=== PATIENT | female | born 1995 | race Caucasian/White ===

== ENCOUNTER 2016-11-27 12:43 | Emergency (ER) | payer SELFPAY ==
--- NOTE | 2016-11-27 14:56 | ED ORDER SUMMARY ---
..... Patient: MARIA T LARSON OrderSheet [facility] VisitID: [id number] [place] [address] 21y, F Registration Date/Time: 11/27/2016 ORDER SHEET Weight: 90.7 kg (stated) Allergies: No Known Drug Allergy GENERAL ORDERS: CBC w Diff Urgent (13:11 11/27/2016 EKoroleva P.A.-C) (Ack 13:14 Josef) (14:02 DDean R.N.) CMP Urgent (13:11 11/27/2016 EKoroleva P.A.-C) (Ack 13:14 Josef) (14:02 DDean R.N.) Serum Quantitative Urgent (13:11 11/27/2016 EKoroleva P.A.-C) (13:11 EKoroleva P.A.-C) (Cancelled: Other13:11 EKoroleva P.A.-C) Serum Quantitative Urgent (13:11 11/27/2016 EKoroleva P.A.-C) (Ack 13:14 Josef) (13:21 DDean R.N.) (Cancelled: Other13:21 DDean R.N.) Wet Prep (Cervix) (c) Urgent (13:11 11/27/2016 EKoroleva P.A.-C) (Ack 13:14 Josef) (14:02 DDean R.N.) GC/Chlamydia (Cervix) (c) Urgent (13:11/27/2016 EKoroleva P.A.-C) (Ack 13:14 Josef) (14:02 DDean R.N.) Pelvic Exam Setup (13:11/27/2016 EKoroleva P.A.-C) (14:02 DDean R.N.) POC - Urine hCG (13:11/27/2016 DDean R.N. per protocol) (14:02 DDean R.N.) UA-Culture if indicated Urgent (13:11/27/2016 EKoroleva P.A.-C) (Ack 13:25 Josef) (14:02 DDean R.N.) US Pelvic Complete w Transvag Urgent (13:27 11/27/2016 EKoroleva P.A.-C) (Ack 13:31 Josef) (14:02 DDean R.N.) MEDICATION ORDERS: Tylenol PO 1,000 mg (NOW) (13:12 11/27/2016 EKoroleva P.A.-C) (Ack 14:01 DDean R.N.) (14:27 DDean R.N.) Vistaril PO 100 mg (NOW) (14:06 11/27/2016 EKoroleva P.A.-C) (14:27 DDean R.N.) Ciprofloxacin PO 500 mg (NOW) (14:06 11/27/2016 EKoroleva P.A.-C) (Cancelled: Other14:08 EKoroleva P.A.-C) Levofloxacin PO 500 mg (NOW) (14:08 11/27/2016 EKoroleva P.A.-C) (14:26 DDean R.N.) IV FLUIDS: IV Saline Lock (13:12 11/27/2016 EKoroleva P.A.-C) (Ack 14:01 DDean R.N.) (14:28 DDean R.N.) IV NS : initial bolus 1000 mL (1000 mL/hr), then 1000 mL/hr for X1 (NOW); Dedrick (13:21 11/27/2016 EKoroleva P.A.-C) (Ack 14:01 DDean R.N.) (Cancelled: pt pulled out iv 14:29 DDean R.N.) Ceftriaxone IV 2 gm/50mL (NOW) (13:55 11/27/2016 EKoroleva P.A.-C) (Ack 14:01 DDean R.N.) (Cancelled: Other14:06 EKoroleva P.A.-C) ORDER SHEET NOTES: [Electronically signed by Feli SharmaA.-C (15:07 11/27/2016)] [Electronically signed by Darlyn Vicente R.N. (15:07 11/27/2016)] [Electronically locked/signed by Darlyn Vicente R.N. (15:07 11/27/2016)]
--- NOTE | 2016-11-27 14:56 | ED CLINICAL REPORT ---
Clinical Report - Physicians/Mid Levels [facility] [address] [place] [address] 11/27/2016 12:44 Patient: MARIA T LARSON Time Seen: 13:13 Nov 27 2016. Arrived- By private vehicle. Historian- patient. HISTORY OF PRESENT ILLNESS Chief Complaint: PELVIC PAIN. This started yesterday and still present. The symptoms are described as moderate. The patient has had pelvic pain. No abnormal bleeding or vaginal itching. She has had pain with urination. The patient has had urinary frequency. Last normal menstrual period- 7 days prior, has been spotting last 5 days. Sexually active. (patient presents to the emergency room department with right pelvic pain and burning pain radiating from the right flank into her groin over the last 24 hours. Patient with no history of similar pain. Reports nausea, no vomiting. Last regular menstrual period was about 7 days previously, which was normal in time from a duration of her, however since she has been spotting.). REVIEW OF SYSTEMS The patient has had nausea. No vomiting, diarrhea, chest pain or skin rash. All systems otherwise negative, except as recorded above. PAST HISTORY Problems: URI. LNMP - Last Normal Menstrual Period. Additional Surgeries: no known surgeries. Medications: Midol last night . Pt was on amoxicillin 2 weeks ago, for lung infection . Allergies: No Known Drug Allergy. SOCIAL HISTORY Never smoker. Alcohol use; consumes beer occasionally. History of drug use last use 3 weeks prior: marijuana. Is not under influence in ED. PHYSICAL EXAM Appearance: Anxious. Appears to be in pain. Patient in mild distress. HEENT: Normal external inspection. ENT: Pharynx normal. Neck: Neck supple. CVS: Heart sounds normal. Respiratory: No respiratory distress. Breath sounds normal. Abdomen: Soft. Tenderness in the right lower quadrant, suprapubic area and lower abdomen. No organomegaly. No mass. Back: Normal external inspection. No CVA tenderness. : Speculum exam normal. Vaginal bleeding, (slight). Bimanual exam normal. Tenderness present on bimanual exam (R). (with supervising producer Darlyn KIRKLAND). Skin: Skin warm. Normal skin color. Neuro: Oriented X 3. LABS, X-RAYS, AND EKG Laboratory Tests: UA-Culture if indicated: (NII: 11/27/2016 13:10) ( [facility] 11/27/2016 13:48) Final results Test Result Flag Units (Reference) URINE COLOR YELLOW URINE APPEARANCE CLOUDY URINE GLUCOSE NEGATIVE (NEGATIVE) URINE BILIRUBIN NEGATIVE (NEGATIVE) URINE KETONE NEGATIVE (NEGATIVE) URINE SPECIFIC GRAVITY 1.020 (1.010-1.030) URINE PH 6.0 (5.0-8.0) URINE PROTEIN 1+ (NEGATIVE) URINE UROBILINOGEN 0.2 EU/dL (0.2-1.0) URINE NITRITE NEGATIVE (NEGATIVE) URINE BLOOD 3+ (NEGATIVE) URINE LEUK ESTERASE POSITIVE (NEGATIVE) URINE RBC 75-100 rbc/hpf (0-1) URINE WBC >100 wbc/hpf (0-1) URINE EPITHELIAL CELLS 0-1 EPI/hpf (0-5) URINE BACTERIA MODERATE (2+ TO 3+) (NONE SEEN) URINE COMMENT CULTURE INDICATED RARE TRANSITIONAL EPITHELIAL CELLSURINE CULTURES ARE SET-UP BASED ON THE FOLLOWING CRITERIA:POSITIVE NITRITEPOSITIVE LEUKOCYTE ESTERASEGREATER THAN 10 WHITE BLOOD CELLSMODERATE (2+) OR GREATER BACTERIA CBC w Diff: (NII: 11/27/2016 13:10) ( [facility] 11/27/2016 13:18) Final results Test Result Flag Units (Reference) WHITE BLOOD COUNT 16.9 H K/uL (4.5-11.5) RED BLOOD COUNT 5.06 M/uL (4.00-5.20) HEMOGLOBIN 14.0 gm/dL (12.0-16.0) HEMATOCRIT 41.4 % (36.0-46.0) MEAN CELL VOLUME 82 fL (80-100) MEAN CORPUSCULAR HGB 28 pg (26-34) MEAN CORPUSCULAR HGB CONC 34 g/dL (31-37) RED CELL DISTRIBUTION WIDTH 14.2 % (11.6-14.8) PLATELET COUNT 454 H K/uL (150-400) NEUTROPHIL % 78.0 H % (50-75) LYMPH % 17.0 L % (25-40) MONO % 3.2 % (3-14) EOSINOPHIL % 1.0 % (0-4) BASOPHIL % 0.8 % (0-2) CMP: (NII: 11/27/2016 13:10) ( MsgRcvd 11/27/2016 13:44) Final results Test Result Flag Units (Reference) GLUCOSE 101 mg/dL (70-110) BUN 10 mg/dL (7-18) CREATININE 0.8 mg/dL (0.6-1.3) Estimated GFR >60 mL/min Estimated GFR- >60 mL/min Note: Persistent reduction over 3 months in eGFR<60 mL/min/1.73 m2 defines CKD. Patients with eGFR values>=60 mL/min/1.73 m2 may also have CKD if evidence ofpersistent proteinuria. Additional information may be foundat www.kidney.org. SODIUM 138 mmol/L (136-145) POTASSIUM 3.9 mmol/L (3.5-5.1) CHLORIDE 102 mmol/L (98-107) CARBON DIOXIDE 27 mmol/L (21-32) CALCIUM 9.2 mg/dL (8.5-10.1) TOTAL PROTEIN 8.0 g/dL (6.4-8.2) ALBUMIN 3.7 g/dL (3.3-5.0) BILIRUBIN, TOTAL 0.5 mg/dL (0.0-1.0) ALKALINE PHOSPHATASE 108 U/L (46-116) AST (SGOT) 20 U/L (15-37) ALT (SGPT) 52 U/L (12-78) Wet Prep: (NII: 11/27/2016 13:20) ( MsgRcvd 11/27/2016 13:42) Final results SPECIMEN DESCRIPTION: C Test Result Flag Units (Reference) WET MOUNT CLUE CELLS:: RARE * EPITHELIAL CELLS: MODERATE -- SOURCE?: CERVIX WHITE BLOOD CELLS: MODERATE TRICHOMONAS:: NONE -- YEAST:: NONE . Note - Tests: (US pelvic neg: no torsion). PROGRESS AND PROCEDURES Course of Care: patient with unremarkable pelvic exam size right-sided tenderness, with no cervical motion tenderness. US unremarkable AT 14:10 patient had a panic attack, pulled her IV changed clothing and was standing at edge of her room desiring to leave. We were able to calm her down vistaril 100 mg, and convince her to stay for US, which is negative. Pt was given oral FQ and will continue with CIPRO outpatient. Leukocytosis, afebrile, normacardic, non septic, euovolimic, otherwise healthy female who is stable for outpatient management at this time. No rebound, guarding, no signs concerning for appendicitis. 11/27/2016 14:50 BP: 116/78. HR: 82. RR: 18. O2 saturation: 99%. Pain level now: 10. Patient is stable. Symptoms better. Patient/family counseled. Disposition: Discharged. Condition: good. CLINICAL IMPRESSION Acute pyelonephritis Dysfunctional uterine bleeding. INSTRUCTIONS Do not work today (on 11/27/16 due to MEDICAL REASONS). Drink plenty of fluids. (Address: [address] [place] [address] [facility]). Prescription Medications: Hydrocodone/APAP 5mg / 325mg: take 1 orally every 6 hours as needed for pain. Dispense twelve (12). No refill. Zofran (orally disintegrating tablets) 4 mg: take 1 orally every 6 hours for 3 days as needed for nausea and vomiting. Dispense ten (10). No refill. Substitution is permissible. Cipro 500 mg: take 1 tab orally every 12 hours for 10 days. No refills. Substitution is permissible. Follow-up: Follow up with your doctor in three days as needed. Understanding of the discharge instructions verbalized by patient. (Electronically signed by Feli Sharma P.A.-C 11/27/2016 15:07)
--- NOTE | 2016-11-27 14:56 | ED NURSING NOTES ---
Clinical Report - Nurses [facility] [address] [place] [address] 11/27/2016 12:44 Patient: MARIA T LARSON TRIAGE Triage time 1300. Acuity: LEVEL 3. Chief Complaint: URGENCY and FREQUENCY and (right sided groin pain going thru to back. pt states she didn't sleep well last night due to pain). --13:08 Darlyn Vicente R.N. 13:00 11/27/16. BP: 129/90. HR: 97. RR: 20. O2 saturation: 98%. Temp: 97.8 F. Pain level now: 12/28. --13:08 Darlyn Vicente R.N. Weight: 90.7 kg stated. Height/Length: 59 inches Per Patient. BMI: 40.4. --13:02 Darlyn Vicente R.N. Medications Pt was on amoxicillin 2 weeks ago, for lung infection . --13:07 Darlyn Vicente R.N. Midol last night . --13:08 Darlyn Vicente R.N. Allergies No Known Drug Allergy. --13:07 Darlyn Vicente R.N. History Arrived by private vehicle. Historian: patient. Unaccompanied. No primary care physician. This started last night. She has had spotting and flank pain. ( also c/o nose bleeds). PAST MEDICAL HX: Last normal menstrual period- 1 week. SURGERY HX: No history of previous surgery. SOCIAL HX: Never smoker. Occasional alcohol use. History of drug use: marijuana. (last used 3 weeks). --13:08 Darlyn Vicente R.N. PROBLEMS: URI. --13:03 Darlyn Vicente R.N. ADDITIONAL SURGERIES: no known surgeries. Interventions ID band on patient. To treatment room. --13:08 Darlyn Vicente R.N. PHYSICAL ASSESSMENT 13:00. Ambulatory to room. Patient gowned. GENERAL / NEURO / PSYCH: Alert. Oriented X 4. Appears in pain. RESPIRATORY: Respirations not labored. CVS: Capillary refill less than 2 seconds. GI / : Pain with urination. She has had frequency of urination. Urgency of urination. SKIN: Skin is warm and dry. --13:09 Darlyn Vicente R.N. NURSING PROGRESS NOTES 13:00. Patient gowned. Head of bed elevated. Reassurance given. Patient identifiers checked. Call light placed in reach. Side rails up. Bed placed in lowest position. Patient ready for evaluation- chart flagged. --13:08 Darlyn Vicente R.N. 13:04 11/27/2016 Site #1 started via IV in the left wrist with an 20g angiocath, with aseptic technique and good blood return; one attempt. Blood drawn: rainbow set. Labeled in the presence of the patient and sent to the lab. Saline lock flushed with 10 mL saline. --13:09 Darlyn Vicente R.N. 13:20 11/27/16. Patient ID band checked for patient name and birthdate: patient confirmed. Clean catch urine collected with return of yellow-colored cloudy urine; sample sent to lab for urinalysis and culture. Specimen labeled in the presence of the patient (UA preg= Neg, ERPA notified). --13:20 Darlyn Vicente R.N. 13:50 11/27/2016 Site #1 removed (pt pulled out own saline lock). --15:02 Darlyn Vicente R.N. 13:50 11/27/2016 IV Saline Lock Drip IV Discontinued: (Pt pulled out saline lock due to anxiety, and told staff after event.). --14:29 Darlyn Vicente R.N. 14:10 11/27/2016 Levofloxacin PO Tablets 500 mg given. --14:26 Darlyn Vicente R.N. 14:11/27/2016 Vistaril (HydrOXYzine Pamoate) PO Capsules 100 mg given. Allergies verified, confirmed 5 rights and sedative warning given to the patient. --14:27 Darlyn Vicente R.N. 14:11/27/2016 Tylenol (Acetaminophen) PO Tablets 1000 mg given. Allergies verified and confirmed 5 rights. --14:27 Darlyn Vicente R.N. 13:30. PELVIC EXAM: Pelvic exam performed by PA. Assisted by one nurse. Preparation: pelvic tray; patient placed in lithotomy position. Procedure: speculum and bimanual exam. Specimens collected and sent to lab: GC, chlamydia, wet prep and DNA probe. --15:03 Darlyn Vicente R.N. 13:50 Pt pulled out IV due to "anxiety reaction" pt notified staff of event. --15:04 Darlyn Vicente R.N. 14:05 Pt tearful, fully dressed talking with ERPA. not sure if she wants to stay and wait for US. Pt given meds and po food fluid. talking with staff to calm her down. --15:06 Darlyn Vicente R.N. 14:25 US at bedside to do exam, female escort at bedside. --15:06 Darlyn Vicente R.N. DISPOSITION / DISCHARGE 14:50. Condition at departure: improved and stable. No learning barriers present. Discharge instructions provided and reviewed with the patient. Reviewed medication(s) (cipro, zofran, vicodin). Patient verbalized understanding. Written instructions provided in Swedish. The patient was discharged home and unaccompanied at time of discharge. She left the Emergency Department ambulatory and via private vehicle. Patient driving. --15:02 Darlyn Vicetne R.N. 14:50 11/27/16. BP: 116/78. HR: 82. RR: 18. O2 saturation: 99%. Pain level now: 09/28. --15:02 Darlyn Vicente R.N. Locked/Released at 11/27/2016 15:07 by Darlyn Vicente R.N.
--- NOTE | 2016-11-27 14:56 | ED ORDER SUMMARY ---
..... Patient: MARIA T LARSON OrderSheet [facility] VisitID: [id number] [place] [address] 21y, F Registration Date/Time: 11/27/2016 ORDER SHEET Weight: 90.7 kg (stated) Allergies: No Known Drug Allergy GENERAL ORDERS: CBC w Diff Urgent (13:11 11/27/2016 EKoroleva P.A.-C) (Ack 13:14 Josef) (14:02 DDean R.N.) CMP Urgent (13:11 11/27/2016 EKoroleva P.A.-C) (Ack 13:14 Josef) (14:02 DDean R.N.) Serum Quantitative Urgent (13:11 11/27/2016 EKoroleva P.A.-C) (13:11 EKoroleva P.A.-C) (Cancelled: Other13:11 EKoroleva P.A.-C) Serum Quantitative Urgent (13:11 11/27/2016 EKoroleva P.A.-C) (Ack 13:14 Josef) (13:21 DDean R.N.) (Cancelled: Other13:21 DDean R.N.) Wet Prep (Cervix) (c) Urgent (13:11 11/27/2016 EKoroleva P.A.-C) (Ack 13:14 Josef) (14:02 DDean R.N.) GC/Chlamydia (Cervix) (c) Urgent (13:11/27/2016 EKoroleva P.A.-C) (Ack 13:14 Josef) (14:02 DDean R.N.) Pelvic Exam Setup (13:11/27/2016 EKoroleva P.A.-C) (14:02 DDean R.N.) POC - Urine hCG (13:11/27/2016 DDean R.N. per protocol) (14:02 DDean R.N.) UA-Culture if indicated Urgent (13:11/27/2016 EKoroleva P.A.-C) (Ack 13:25 Josef) (14:02 DDean R.N.) US Pelvic Complete w Transvag Urgent (13:27 11/27/2016 EKoroleva P.A.-C) (Ack 13:31 Josef) (14:02 DDean R.N.) MEDICATION ORDERS: Tylenol PO 1,000 mg (NOW) (13:12 11/27/2016 EKoroleva P.A.-C) (Ack 14:01 DDean R.N.) (14:27 DDean R.N.) Vistaril PO 100 mg (NOW) (14:06 11/27/2016 EKoroleva P.A.-C) (14:27 DDean R.N.) Ciprofloxacin PO 500 mg (NOW) (14:06 11/27/2016 EKoroleva P.A.-C) (Cancelled: Other14:08 EKoroleva P.A.-C) Levofloxacin PO 500 mg (NOW) (14:08 11/27/2016 EKoroleva P.A.-C) (14:26 DDean R.N.) IV FLUIDS: IV Saline Lock (13:12 11/27/2016 EKoroleva P.A.-C) (Ack 14:01 DDean R.N.) (14:28 DDean R.N.) IV NS : initial bolus 1000 mL (1000 mL/hr), then 1000 mL/hr for X1 (NOW); Dedrick (13:21 11/27/2016 EKoroleva P.A.-C) (Ack 14:01 DDean R.N.) (Cancelled: pt pulled out iv 14:29 DDean R.N.) Ceftriaxone IV 2 gm/50mL (NOW) (13:55 11/27/2016 EKoroleva P.A.-C) (Ack 14:01 DDean R.N.) (Cancelled: Other14:06 EKoroleva P.A.-C) ORDER SHEET NOTES: [Electronically signed by Feli SharmaA.-C (15:07 11/27/2016)] [Electronically signed by Darlyn Vicente R.N. (15:07 11/27/2016)] [Electronically locked/signed by Darlyn Vicente R.N. (15:07 11/27/2016)]
--- NOTE | 2016-11-27 14:56 | ED CLINICAL REPORT ---
Clinical Report - Physicians/Mid Levels [facility] [address] [place] [address] 11/27/2016 12:44 Patient: MARIA T LARSON Time Seen: 13:13 Nov 27 2016. Arrived- By private vehicle. Historian- patient. HISTORY OF PRESENT ILLNESS Chief Complaint: PELVIC PAIN. This started yesterday and still present. The symptoms are described as moderate. The patient has had pelvic pain. No abnormal bleeding or vaginal itching. She has had pain with urination. The patient has had urinary frequency. Last normal menstrual period- 7 days prior, has been spotting last 5 days. Sexually active. (patient presents to the emergency room department with right pelvic pain and burning pain radiating from the right flank into her groin over the last 24 hours. Patient with no history of similar pain. Reports nausea, no vomiting. Last regular menstrual period was about 7 days previously, which was normal in time from a duration of her, however since she has been spotting.). REVIEW OF SYSTEMS The patient has had nausea. No vomiting, diarrhea, chest pain or skin rash. All systems otherwise negative, except as recorded above. PAST HISTORY Problems: URI. LNMP - Last Normal Menstrual Period. Additional Surgeries: no known surgeries. Medications: Midol last night . Pt was on amoxicillin 2 weeks ago, for lung infection . Allergies: No Known Drug Allergy. SOCIAL HISTORY Never smoker. Alcohol use; consumes beer occasionally. History of drug use last use 3 weeks prior: marijuana. Is not under influence in ED. PHYSICAL EXAM Appearance: Anxious. Appears to be in pain. Patient in mild distress. HEENT: Normal external inspection. ENT: Pharynx normal. Neck: Neck supple. CVS: Heart sounds normal. Respiratory: No respiratory distress. Breath sounds normal. Abdomen: Soft. Tenderness in the right lower quadrant, suprapubic area and lower abdomen. No organomegaly. No mass. Back: Normal external inspection. No CVA tenderness. : Speculum exam normal. Vaginal bleeding, (slight). Bimanual exam normal. Tenderness present on bimanual exam (R). (with machine staker Darlyn KIRKLAND). Skin: Skin warm. Normal skin color. Neuro: Oriented X 3. LABS, X-RAYS, AND EKG Laboratory Tests: UA-Culture if indicated: (NII: 11/27/2016 13:10) ( [facility] 11/27/2016 13:48) Final results Test Result Flag Units (Reference) URINE COLOR YELLOW URINE APPEARANCE CLOUDY URINE GLUCOSE NEGATIVE (NEGATIVE) URINE BILIRUBIN NEGATIVE (NEGATIVE) URINE KETONE NEGATIVE (NEGATIVE) URINE SPECIFIC GRAVITY 1.020 (1.010-1.030) URINE PH 6.0 (5.0-8.0) URINE PROTEIN 1+ (NEGATIVE) URINE UROBILINOGEN 0.2 EU/dL (0.2-1.0) URINE NITRITE NEGATIVE (NEGATIVE) URINE BLOOD 3+ (NEGATIVE) URINE LEUK ESTERASE POSITIVE (NEGATIVE) URINE RBC 75-100 rbc/hpf (0-1) URINE WBC >100 wbc/hpf (0-1) URINE EPITHELIAL CELLS 0-1 EPI/hpf (0-5) URINE BACTERIA MODERATE (2+ TO 3+) (NONE SEEN) URINE COMMENT CULTURE INDICATED RARE TRANSITIONAL EPITHELIAL CELLSURINE CULTURES ARE SET-UP BASED ON THE FOLLOWING CRITERIA:POSITIVE NITRITEPOSITIVE LEUKOCYTE ESTERASEGREATER THAN 10 WHITE BLOOD CELLSMODERATE (2+) OR GREATER BACTERIA CBC w Diff: (NII: 11/27/2016 13:10) ( [facility] 11/27/2016 13:18) Final results Test Result Flag Units (Reference) WHITE BLOOD COUNT 16.9 H K/uL (4.5-11.5) RED BLOOD COUNT 5.06 M/uL (4.00-5.20) HEMOGLOBIN 14.0 gm/dL (12.0-16.0) HEMATOCRIT 41.4 % (36.0-46.0) MEAN CELL VOLUME 82 fL (80-100) MEAN CORPUSCULAR HGB 28 pg (26-34) MEAN CORPUSCULAR HGB CONC 34 g/dL (31-37) RED CELL DISTRIBUTION WIDTH 14.2 % (11.6-14.8) PLATELET COUNT 454 H K/uL (150-400) NEUTROPHIL % 78.0 H % (50-75) LYMPH % 17.0 L % (25-40) MONO % 3.2 % (3-14) EOSINOPHIL % 1.0 % (0-4) BASOPHIL % 0.8 % (0-2) CMP: (NII: 11/27/2016 13:10) ( MsgRcvd 11/27/2016 13:44) Final results Test Result Flag Units (Reference) GLUCOSE 101 mg/dL (70-110) BUN 10 mg/dL (7-18) CREATININE 0.8 mg/dL (0.6-1.3) Estimated GFR >60 mL/min Estimated GFR- >60 mL/min Note: Persistent reduction over 3 months in eGFR<60 mL/min/1.73 m2 defines CKD. Patients with eGFR values>=60 mL/min/1.73 m2 may also have CKD if evidence ofpersistent proteinuria. Additional information may be foundat www.kidney.org. SODIUM 138 mmol/L (136-145) POTASSIUM 3.9 mmol/L (3.5-5.1) CHLORIDE 102 mmol/L (98-107) CARBON DIOXIDE 27 mmol/L (21-32) CALCIUM 9.2 mg/dL (8.5-10.1) TOTAL PROTEIN 8.0 g/dL (6.4-8.2) ALBUMIN 3.7 g/dL (3.3-5.0) BILIRUBIN, TOTAL 0.5 mg/dL (0.0-1.0) ALKALINE PHOSPHATASE 108 U/L (46-116) AST (SGOT) 20 U/L (15-37) ALT (SGPT) 52 U/L (12-78) Wet Prep: (NII: 11/27/2016 13:20) ( MsgRcvd 11/27/2016 13:42) Final results SPECIMEN DESCRIPTION: C Test Result Flag Units (Reference) WET MOUNT CLUE CELLS:: RARE * EPITHELIAL CELLS: MODERATE -- SOURCE?: CERVIX WHITE BLOOD CELLS: MODERATE TRICHOMONAS:: NONE -- YEAST:: NONE . Note - Tests: (US pelvic neg: no torsion). PROGRESS AND PROCEDURES Course of Care: patient with unremarkable pelvic exam size right-sided tenderness, with no cervical motion tenderness. US unremarkable AT 14:10 patient had a panic attack, pulled her IV changed clothing and was standing at edge of her room desiring to leave. We were able to calm her down vistaril 100 mg, and convince her to stay for US, which is negative. Pt was given oral FQ and will continue with CIPRO outpatient. Leukocytosis, afebrile, normacardic, non septic, euovolimic, otherwise healthy female who is stable for outpatient management at this time. No rebound, guarding, no signs concerning for appendicitis. 11/27/2016 14:50 BP: 116/78. HR: 82. RR: 18. O2 saturation: 99%. Pain level now: 10. Patient is stable. Symptoms better. Patient/family counseled. Disposition: Discharged. Condition: good. CLINICAL IMPRESSION Acute pyelonephritis Dysfunctional uterine bleeding. INSTRUCTIONS Do not work today (on 11/27/16 due to MEDICAL REASONS). Drink plenty of fluids. (Address: [address] [place] [address] [facility]). Prescription Medications: Hydrocodone/APAP 5mg / 325mg: take 1 orally every 6 hours as needed for pain. Dispense twelve (12). No refill. Zofran (orally disintegrating tablets) 4 mg: take 1 orally every 6 hours for 3 days as needed for nausea and vomiting. Dispense ten (10). No refill. Substitution is permissible. Cipro 500 mg: take 1 tab orally every 12 hours for 10 days. No refills. Substitution is permissible. Follow-up: Follow up with your doctor in three days as needed. Understanding of the discharge instructions verbalized by patient. (Electronically signed by Feli Sharma P.A.-C 11/27/2016 15:07)
--- NOTE | 2016-11-27 15:08 | ED DISCHARGE INSTRUCTIONS ---
Patient: MARIA T LARSON General Instructions [facility] VisitID: [id number] [place] [address] 21y, F Registration Date/Time: 11/27/2016 Acute pyelonephritis Dysfunctional uterine bleeding. INSTRUCTIONS Do not work today (on 11/27/16 due to MEDICAL REASONS). Drink plenty of fluids. (Address: [place] [address] [facility]). Prescription Medications: Hydrocodone/APAP 5mg / 325mg: take 1 orally every 6 hours as needed for pain. Dispense twelve (12). No refill. Zofran (orally disintegrating tablets) 4 mg: take 1 orally every 6 hours for 3 days as needed for nausea and vomiting. Dispense ten (10). No refill. Substitution is permissible. Cipro 500 mg: take 1 tab orally every 12 hours for 10 days. No refills. Substitution is permissible. Follow-up: Follow up with your doctor in three days as needed. Understanding of the discharge instructions verbalized by patient. ADDITIONAL INFORMATION Kidney Infection [Adult, Female] An infection of the kidney is also called "pyelonephritis". It usually starts as a bladder infection ("cystitis") which spreads to the kidneys. Pyelonephritis is more serious than a bladder infection. It can cause severe illness if not treated properly. The usual symptoms include an aching pain in the back, side or lower abdomen. Other symptoms may include fever, chills, nausea, vomiting, an urge to urinate and a burning sensation when passing urine. Home Care: Stay home from work or school. Rest in bed until your fever breaks and you are feeling better. Drink lots of fluid (at least 6-8 glasses a day, unless you must restrict fluids for other medical reasons). This will force the medicine into your urinary system and flush the bacteria out of your body. Avoid sexual intercourse until you have finished all of your medicine and your symptoms have gone away. Avoid caffeine, alcohol and spicy foods which may irritate the kidney and bladder. You may use acetaminophen (Tylenol) or ibuprofen (Motrin, Advil) to control pain, unless another pain medicine was prescribed. [NOTE: If you have chronic liver or kidney disease or ever had a stomach ulcer or GI bleeding, talk with your doctor before using these medicines.] Follow Up with your doctor or as advised by our staff for a repeat urine test in 10 days. This will ensure that your infection is fully cleared. [NOTE: If you had an X-ray or CT scan, it will be reviewed by a specialist. You will be notified of any new findings that may affect your care.] Get Prompt Medical Attention if any of the following occur: Fever over 100.4F (38.0C) after 48 hours of treatment No improvement by the third day of treatment Increasing back or abdominal pain Repeated vomiting or inability to take oral medicine Weakness, dizziness or fainting Hydrocodone Bitartrate, Acetaminophen Oral tablet What is this medicine? ACETAMINOPHEN; HYDROCODONE (a set a GEO homero fen; keith droe KOE done) is a pain reliever. It is used to treat mild to moderate pain. How should I use this medicine? Take this medicine by mouth. Swallow it with a full glass of water. Follow the directions on the prescription label. If the medicine upsets your stomach, take the medicine with food or milk. Do not take more than you are told to take. Talk to your land commissioner regarding the use of this medicine in children. This medicine is not approved for use in children. What side effects may I notice from receiving this medicine? Side effects that you should report to your doctor or health care management assistant as soon as possible: allergic reactions like skin rash, itching or hives, swelling of the face, lips, or tongue breathing problems confusion feeling faint or lightheaded, falls stomach pain yellowing of the eyes or skin Side effects that usually do not require medical attention (report to your doctor or health care management assistant if they continue or are bothersome): nausea, vomiting stomach upset What may interact with this medicine? alcohol antihistamines isoniazid medicines for depression, anxiety, or psychotic disturbances medicines for sleep muscle relaxants naltrexone narcotic medicines (opiates) for pain phenobarbital ritonavir tramadol What if I miss a dose? If you miss a dose, take it as soon as you can. If it is almost time for your next dose, take only that dose. Do not take double or extra doses. Where should I keep my medicine? Keep out of the reach of children. This medicine can be abused. Keep your medicine in a safe place to protect it from theft. Do not share this medicine with anyone. Selling or giving away this medicine is dangerous and against the law. Store at room temperature between 15 and 30 degrees C (59 and 86 degrees F). Protect from light. Keep container tightly closed. Throw away any unused medicine after the expiration date. Discard unused medicine and used packaging carefully. Pets and children can be harmed if they find used or lost packages. What should I tell my health care provider before I take this medicine? They need to know if you have any of these conditions: brain tumor Crohn's disease, inflammatory bowel disease, or ulcerative colitis drink more than 3 alcohol-containing drinks per day drug abuse or addiction head injury heart or circulation problems kidney disease or problems going to the bathroom liver disease lung disease, asthma, or breathing problems an unusual or allergic reaction to acetaminophen, hydrocodone, other opioid analgesics, other medicines, foods, dyes, or preservatives or trying to get breast-feeding What should I watch for while using this medicine? Tell your doctor or health care management assistant if your pain does not go away, if it gets worse, or if you have new or a different type of pain. You may develop tolerance to the medicine. Tolerance means that you will need a higher dose of the medicine for pain relief. Tolerance is normal and is expected if you take the medicine for a long time. Do not suddenly stop taking your medicine because you may develop a severe reaction. Your body becomes used to the medicine. This does NOT mean you are addicted. Addiction is a behavior related to getting and using a drug for a non-medical reason. If you have pain, you have a medical reason to take pain medicine. Your doctor will tell you how much medicine to take. If your doctor wants you to stop the medicine, the dose will be slowly lowered over time to avoid any side effects. You may get drowsy or dizzy when you first start taking the medicine or change doses. Do not drive, use machinery, or do anything that may be dangerous until you know how the medicine affects you. Stand or sit up slowly. There are different types of narcotic medicines (opiates) for pain. If you take more than one type at the same time, you may have more side effects. Give your health care provider a list of all medicines you use. Your doctor will tell you how much medicine to take. Do not take more medicine than directed. Call emergency for help if you have problems breathing. The medicine will cause constipation. Try to have a bowel movement at least every 2 to 3 days. If you do not have a bowel movement for 3 days, call your doctor or health care management assistant. Too much acetaminophen can be very dangerous. Do not take Tylenol (acetaminophen) or medicines that contain acetaminophen with this medicine. Many non-prescription medicines contain acetaminophen. Always read the labels carefully. Ciprofloxacin Hydrochloride Oral tablet What is this medicine? CIPROFLOXACIN (sip luh FLOX a sin) is a quinolone antibiotic. It is used to treat certain kinds of bacterial infections. It will not work for colds, flu, or other viral infections. How should I use this medicine? Take this medicine by mouth with a glass of water. Follow the directions on the prescription label. Take your medicine at regular intervals. Do not take your medicine more often than directed. Take all of your medicine as directed even if you think your are better. Do not skip doses or stop your medicine early. You can take this medicine with food or on an empty stomach. It can be taken with a meal that contains dairy or calcium, but do not take it alone with a dairy product, like milk or yogurt or calcium-fortified juice. A special MedGuide will be given to you by the pharmacist with each prescription and refill. Be sure to read this information carefully each time. Talk to your land commissioner regarding the use of this medicine in children. Special care may be needed. What side effects may I notice from receiving this medicine? Side effects that you should report to your doctor or health care management assistant as soon as possible: - allergic reactions like skin rash, itching or hives, swelling of the face, lips, or tongue - breathing problems - confusion, nightmares or hallucinations - feeling faint or lightheaded, falls - irregular heartbeat - joint, muscle or tendon pain or swelling - pain or trouble passing urine -persistent headache with or without blurred vision - redness, blistering, peeling or loosening of the skin, including inside the mouth - seizure - unusual pain, numbness, tingling, or weakness Side effects that usually do not require medical attention (report to your doctor or health care management assistant if they continue or are bothersome): - diarrhea - nausea or stomach upset - white patches or sores in the mouth What may interact with this medicine? Do not take this medicine with any of the following medications: cisapride droperidol terfenadine tizanidine This medicine may also interact with the following medications: antacids caffeine cyclosporin didanosine (ddI) buffered tablets or powder medicines for diabetes medicines for inflammation like ibuprofen, naproxen methotrexate multivitamins omeprazole phenytoin probenecid sucralfate theophylline warfarin What if I miss a dose? If you miss a dose, take it as soon as you can. If it is almost time for your next dose, take only that dose. Do not take double or extra doses. Where should I keep my medicine? Keep out of the reach of children. Store at room temperature below 30 degrees C (86 degrees F). Keep container tightly closed. Throw away any unused medicine after the expiration date. What should I tell my health care provider before I take this medicine? They need to know if you have any of these conditions: -bone problems -cerebral disease -joint problems -irregular heartbeat -kidney disease -liver disease -myasthenia gravis -seizure disorder -tendon problems -an unusual or allergic reaction to ciprofloxacin, other antibiotics or medicines, foods, dyes, or preservatives - or trying to get -breast-feeding What should I watch for while using this medicine? Tell your doctor or health care management assistant if your symptoms do not improve. Do not treat diarrhea with over the counter products. Contact your doctor if you have diarrhea that lasts more than 2 days or if it is severe and watery. You may get drowsy or dizzy. Do not drive, use machinery, or do anything that needs mental alertness until you know how this medicine affects you. Do not stand or sit up quickly, especially if you are an older patient. This reduces the risk of dizzy or fainting spells. This medicine can make you more sensitive to the sun. Keep out of the sun. If you cannot avoid being in the sun, wear protective clothing and use sunscreen. Do not use sun lamps or tanning beds/booths. Avoid antacids, aluminum, calcium, iron, magnesium, and zinc products for 6 hours before and 2 hours after taking a dose of this medicine. You have been given the following additional information: Pyelonephritis, Female (Adult) Hydrocodone Bitartrate, Acetaminophen Oral tablet Ciprofloxacin Hydrochloride Oral tablet Do not work today (on 11/27/16 due to MEDICAL REASONS). (Electronically signed by Feli Sharma P.A.-C 11/27/2016 15:07)
--- NOTE | 2016-11-27 15:08 | ED MED RECONCILIATION SUMMARY ---
Patient: MARIA T LARSON Medication Reconciliation Report Located Within [facility] VisitID: [id number] [place] [address] 21y, F Registration Date/Time: 11/27/2016 Weight: 90.7 kg Height/Length: 59 in. BMI: 40.4 ALLERGIES: No Known Drug Allergy The patient's Home Medications are listed below: THE FOLLOWING MEDICATIONS NEED TO BE RECONCILED: Midol last night Pt was on amoxicillin 2 weeks ago, for lung infection The source(s) of the original Home Medication information: Not obtained. The following Medications were given to the patient in the Emergency Department: Levofloxacin [PO] PO 500 mg, administered: 11/27/2016 2:10:00 PM Vistaril [PO] PO 100 mg, administered: 11/27/2016 2:10:00 PM Tylenol [PO] PO 1000 mg, administered: 11/27/2016 2:10:00 PM The following Medications were prescribed to the patient: Hydrocodone/APAP 5mg / 325mg: take 1 orally every 6 hours as needed for pain. Dispense twelve (12). No refill. -- Feli Sharma, P.A.-C Zofran (orally disintegrating tablets) 4 mg: take 1 orally every 6 hours for 3 days as needed for nausea and vomiting. Dispense ten (10). No refill. Substitution is permissible. -- Feli Sharma, P.A.-C Cipro 500 mg: take 1 tab orally every 12 hours for 10 days. No refills. Substitution is permissible. -- Feli Sharma, P.A.-C
--- NOTE | 2016-11-27 15:08 | ED MAR SUMMARY ---
..... Medication Administration Record [facility] [address] [place] [address] Patient: MARIA T LARSON Visit ID: [id number] 21y, F Weight: 90.7 kg Height/Length: 59 in BMI: 40.4 ALLERGIES: No Known Drug Allergy Given 14:11/27/2016 Darlyn Vicente RJoelN. Medication Administered: TYLENOL [PO] (ACETAMINOPHEN), Dose: 1000 mg Tablets PO. Medication Ordered: Tylenol PO 1,000 mg (NOW). Given 14:11/27/2016 Darlyn Vicente RJoelN. Medication Administered: VISTARIL [PO] (HYDROXYZINE PAMOATE), Dose: 100 mg Capsules PO. Medication Ordered: Vistaril PO 100 mg (NOW). Given 14:11/27/2016 Darlyn Vicente R.N. Medication Administered: LEVOFLOXACIN [PO], Dose: 500 mg Tablets PO. Medication Ordered: Levofloxacin PO 500 mg (NOW).
--- NOTE | 2016-11-27 15:08 | ED MED RECONCILIATION SUMMARY ---
Patient: MARIA T LARSON Medication Reconciliation Report [facility] VisitID: [id number] [place] [address] 21y, F Registration Date/Time: 11/27/2016 Weight: 90.7 kg Height/Length: 59 in. BMI: 40.4 ALLERGIES: No Known Drug Allergy The patient's Home Medications are listed below: THE FOLLOWING MEDICATIONS NEED TO BE RECONCILED: Midol last night Pt was on amoxicillin 2 weeks ago, for lung infection The source(s) of the original Home Medication information: Not obtained. The following Medications were given to the patient in the Emergency Department: Levofloxacin [PO] PO 500 mg, administered: 11/27/2016 2:10:00 PM Vistaril [PO] PO 100 mg, administered: 11/27/2016 2:10:00 PM Tylenol [PO] PO 1000 mg, administered: 11/27/2016 2:10:00 PM The following Medications were prescribed to the patient: Hydrocodone/APAP 5mg / 325mg: take 1 orally every 6 hours as needed for pain. Dispense twelve (12). No refill. -- Feli Sharma, P.A.-C Zofran (orally disintegrating tablets) 4 mg: take 1 orally every 6 hours for 3 days as needed for nausea and vomiting. Dispense ten (10). No refill. Substitution is permissible. -- Feli Sharma, P.A.-C Cipro 500 mg: take 1 tab orally every 12 hours for 10 days. No refills. Substitution is permissible. -- Feli Sharma, P.A.-C
--- NOTE | 2016-11-27 15:08 | ED DISCHARGE INSTRUCTIONS ---
Patient: MARIA T LARSON General Instructions [facility] VisitID: [id number] [place] [address] 21y, F Registration Date/Time: 11/27/2016 Acute pyelonephritis Dysfunctional uterine bleeding. INSTRUCTIONS Do not work today (on 11/27/16 due to MEDICAL REASONS). Drink plenty of fluids. (Address: [place] [address] [facility]). Prescription Medications: Hydrocodone/APAP 5mg / 325mg: take 1 orally every 6 hours as needed for pain. Dispense twelve (12). No refill. Zofran (orally disintegrating tablets) 4 mg: take 1 orally every 6 hours for 3 days as needed for nausea and vomiting. Dispense ten (10). No refill. Substitution is permissible. Cipro 500 mg: take 1 tab orally every 12 hours for 10 days. No refills. Substitution is permissible. Follow-up: Follow up with your doctor in three days as needed. Understanding of the discharge instructions verbalized by patient. ADDITIONAL INFORMATION Kidney Infection [Adult, Female] An infection of the kidney is also called "pyelonephritis". It usually starts as a bladder infection ("cystitis") which spreads to the kidneys. Pyelonephritis is more serious than a bladder infection. It can cause severe illness if not treated properly. The usual symptoms include an aching pain in the back, side or lower abdomen. Other symptoms may include fever, chills, nausea, vomiting, an urge to urinate and a burning sensation when passing urine. Home Care: Stay home from work or school. Rest in bed until your fever breaks and you are feeling better. Drink lots of fluid (at least 6-8 glasses a day, unless you must restrict fluids for other medical reasons). This will force the medicine into your urinary system and flush the bacteria out of your body. Avoid sexual intercourse until you have finished all of your medicine and your symptoms have gone away. Avoid caffeine, alcohol and spicy foods which may irritate the kidney and bladder. You may use acetaminophen (Tylenol) or ibuprofen (Motrin, Advil) to control pain, unless another pain medicine was prescribed. [NOTE: If you have chronic liver or kidney disease or ever had a stomach ulcer or GI bleeding, talk with your doctor before using these medicines.] Follow Up with your doctor or as advised by our staff for a repeat urine test in 10 days. This will ensure that your infection is fully cleared. [NOTE: If you had an X-ray or CT scan, it will be reviewed by a specialist. You will be notified of any new findings that may affect your care.] Get Prompt Medical Attention if any of the following occur: Fever over 100.4F (38.0C) after 48 hours of treatment No improvement by the third day of treatment Increasing back or abdominal pain Repeated vomiting or inability to take oral medicine Weakness, dizziness or fainting Hydrocodone Bitartrate, Acetaminophen Oral tablet What is this medicine? ACETAMINOPHEN; HYDROCODONE (a set a GEO homero fen; keith droe KOE done) is a pain reliever. It is used to treat mild to moderate pain. How should I use this medicine? Take this medicine by mouth. Swallow it with a full glass of water. Follow the directions on the prescription label. If the medicine upsets your stomach, take the medicine with food or milk. Do not take more than you are told to take. Talk to your court officer regarding the use of this medicine in children. This medicine is not approved for use in children. What side effects may I notice from receiving this medicine? Side effects that you should report to your doctor or health long term care pharmacist as soon as possible: allergic reactions like skin rash, itching or hives, swelling of the face, lips, or tongue breathing problems confusion feeling faint or lightheaded, falls stomach pain yellowing of the eyes or skin Side effects that usually do not require medical attention (report to your doctor or health long term care pharmacist if they continue or are bothersome): nausea, vomiting stomach upset What may interact with this medicine? alcohol antihistamines isoniazid medicines for depression, anxiety, or psychotic disturbances medicines for sleep muscle relaxants naltrexone narcotic medicines (opiates) for pain phenobarbital ritonavir tramadol What if I miss a dose? If you miss a dose, take it as soon as you can. If it is almost time for your next dose, take only that dose. Do not take double or extra doses. Where should I keep my medicine? Keep out of the reach of children. This medicine can be abused. Keep your medicine in a safe place to protect it from theft. Do not share this medicine with anyone. Selling or giving away this medicine is dangerous and against the law. Store at room temperature between 15 and 30 degrees C (59 and 86 degrees F). Protect from light. Keep container tightly closed. Throw away any unused medicine after the expiration date. Discard unused medicine and used packaging carefully. Pets and children can be harmed if they find used or lost packages. What should I tell my health care provider before I take this medicine? They need to know if you have any of these conditions: brain tumor Crohn's disease, inflammatory bowel disease, or ulcerative colitis drink more than 3 alcohol-containing drinks per day drug abuse or addiction head injury heart or circulation problems kidney disease or problems going to the bathroom liver disease lung disease, asthma, or breathing problems an unusual or allergic reaction to acetaminophen, hydrocodone, other opioid analgesics, other medicines, foods, dyes, or preservatives or trying to get breast-feeding What should I watch for while using this medicine? Tell your doctor or health long term care pharmacist if your pain does not go away, if it gets worse, or if you have new or a different type of pain. You may develop tolerance to the medicine. Tolerance means that you will need a higher dose of the medicine for pain relief. Tolerance is normal and is expected if you take the medicine for a long time. Do not suddenly stop taking your medicine because you may develop a severe reaction. Your body becomes used to the medicine. This does NOT mean you are addicted. Addiction is a behavior related to getting and using a drug for a non-medical reason. If you have pain, you have a medical reason to take pain medicine. Your doctor will tell you how much medicine to take. If your doctor wants you to stop the medicine, the dose will be slowly lowered over time to avoid any side effects. You may get drowsy or dizzy when you first start taking the medicine or change doses. Do not drive, use machinery, or do anything that may be dangerous until you know how the medicine affects you. Stand or sit up slowly. There are different types of narcotic medicines (opiates) for pain. If you take more than one type at the same time, you may have more side effects. Give your health care provider a list of all medicines you use. Your doctor will tell you how much medicine to take. Do not take more medicine than directed. Call emergency for help if you have problems breathing. The medicine will cause constipation. Try to have a bowel movement at least every 2 to 3 days. If you do not have a bowel movement for 3 days, call your doctor or health long term care pharmacist. Too much acetaminophen can be very dangerous. Do not take Tylenol (acetaminophen) or medicines that contain acetaminophen with this medicine. Many non-prescription medicines contain acetaminophen. Always read the labels carefully. Ciprofloxacin Hydrochloride Oral tablet What is this medicine? CIPROFLOXACIN (sip luh FLOX a sin) is a quinolone antibiotic. It is used to treat certain kinds of bacterial infections. It will not work for colds, flu, or other viral infections. How should I use this medicine? Take this medicine by mouth with a glass of water. Follow the directions on the prescription label. Take your medicine at regular intervals. Do not take your medicine more often than directed. Take all of your medicine as directed even if you think your are better. Do not skip doses or stop your medicine early. You can take this medicine with food or on an empty stomach. It can be taken with a meal that contains dairy or calcium, but do not take it alone with a dairy product, like milk or yogurt or calcium-fortified juice. A special MedGuide will be given to you by the pharmacist with each prescription and refill. Be sure to read this information carefully each time. Talk to your court officer regarding the use of this medicine in children. Special care may be needed. What side effects may I notice from receiving this medicine? Side effects that you should report to your doctor or health long term care pharmacist as soon as possible: - allergic reactions like skin rash, itching or hives, swelling of the face, lips, or tongue - breathing problems - confusion, nightmares or hallucinations - feeling faint or lightheaded, falls - irregular heartbeat - joint, muscle or tendon pain or swelling - pain or trouble passing urine -persistent headache with or without blurred vision - redness, blistering, peeling or loosening of the skin, including inside the mouth - seizure - unusual pain, numbness, tingling, or weakness Side effects that usually do not require medical attention (report to your doctor or health long term care pharmacist if they continue or are bothersome): - diarrhea - nausea or stomach upset - white patches or sores in the mouth What may interact with this medicine? Do not take this medicine with any of the following medications: cisapride droperidol terfenadine tizanidine This medicine may also interact with the following medications: antacids caffeine cyclosporin didanosine (ddI) buffered tablets or powder medicines for diabetes medicines for inflammation like ibuprofen, naproxen methotrexate multivitamins omeprazole phenytoin probenecid sucralfate theophylline warfarin What if I miss a dose? If you miss a dose, take it as soon as you can. If it is almost time for your next dose, take only that dose. Do not take double or extra doses. Where should I keep my medicine? Keep out of the reach of children. Store at room temperature below 30 degrees C (86 degrees F). Keep container tightly closed. Throw away any unused medicine after the expiration date. What should I tell my health care provider before I take this medicine? They need to know if you have any of these conditions: -bone problems -cerebral disease -joint problems -irregular heartbeat -kidney disease -liver disease -myasthenia gravis -seizure disorder -tendon problems -an unusual or allergic reaction to ciprofloxacin, other antibiotics or medicines, foods, dyes, or preservatives - or trying to get -breast-feeding What should I watch for while using this medicine? Tell your doctor or health long term care pharmacist if your symptoms do not improve. Do not treat diarrhea with over the counter products. Contact your doctor if you have diarrhea that lasts more than 2 days or if it is severe and watery. You may get drowsy or dizzy. Do not drive, use machinery, or do anything that needs mental alertness until you know how this medicine affects you. Do not stand or sit up quickly, especially if you are an older patient. This reduces the risk of dizzy or fainting spells. This medicine can make you more sensitive to the sun. Keep out of the sun. If you cannot avoid being in the sun, wear protective clothing and use sunscreen. Do not use sun lamps or tanning beds/booths. Avoid antacids, aluminum, calcium, iron, magnesium, and zinc products for 6 hours before and 2 hours after taking a dose of this medicine. You have been given the following additional information: Pyelonephritis, Female (Adult) Hydrocodone Bitartrate, Acetaminophen Oral tablet Ciprofloxacin Hydrochloride Oral tablet Do not work today (on 11/27/16 due to MEDICAL REASONS). (Electronically signed by Feli Sharma P.A.-C 11/27/2016 15:07)
--- NOTE | 2016-11-27 15:08 | ED MAR SUMMARY ---
..... Medication Administration Record [facility] [address] [address] Patient: MARIA T LARSON Visit ID: [id number] 21y, F Weight: 90.7 kg Height/Length: 59 in BMI: 40.4 ALLERGIES: No Known Drug Allergy Given 14:11/27/2016 Darlyn Vicente RJoelN. Medication Administered: TYLENOL [PO] (ACETAMINOPHEN), Dose: 1000 mg Tablets PO. Medication Ordered: Tylenol PO 1,000 mg (NOW). Given 14:11/27/2016 Darlyn Vicente RJoelN. Medication Administered: VISTARIL [PO] (HYDROXYZINE PAMOATE), Dose: 100 mg Capsules PO. Medication Ordered: Vistaril PO 100 mg (NOW). Given 14:11/27/2016 Darlyn Vicente R.N. Medication Administered: LEVOFLOXACIN [PO], Dose: 500 mg Tablets PO. Medication Ordered: Levofloxacin PO 500 mg (NOW).
--- NOTE | 2016-11-27 15:25 | DIAGNOSTIC IMAGING REPORT ---
PROCEDURE: US COMPLETE PELVIC W/TRANSVAG INDICATION: PELVIC PAIN TECHNIQUE: Transabdominal and endovaginal gaona scale and color Doppler sonographic images of the female pelvis were obtained. COMPARISON: None. FINDINGS: TRANSABDOMINAL SCANS: The uterus is of normal size 5.1 x 3.2 x 2.5 cm Kidneys are normal. TRANSVAGINAL SCANS: The uterus is anteverted. Myometrium is normal. The endometrium measures 3 mm. Right ovary is normal measuring 3.1 x 2.1 x 1.3 cm The left ovary is normal measuring 3.6 x 1.5 x 2.4 cm Good of blood flow was seen in both ovaries. IMPRESSION: 1. Normal uterus and ovaries and kidneys.
== END 2016-11-27 14:50 | disposition home or self-care (01) ==
LOC: ED SRH 12:43
DX: N10 Acute pyelonephritis (principal); N93.9 Abnormal uterine and vaginal bleeding, unspecified; F12.10 Cannabis abuse, uncomplicated
CPT/HCPCS: 90004; 90100; 90148; 90195; 90469; 91227; 91228; 95059